=== PATIENT | male | born 2005 | race African-American/Black ===

== ENCOUNTER 2024-08-18 13:29 | Emergency (ER) | payer OTHER ==
[~2024-08-18] VITALS: Ht 180.3 cm; Wt 68.0 kg
[2024-08-18 13:32] VITALS: BP 102/64; PULSE 60; RESP 16; TEMP 37; O2SAT 99
[2024-08-18] MEDS ORDERED: SODIUM CHLORIDE 0.9% 1,000 ML IV ONE (13:45)
== END 2024-08-18 15:30 | disposition left against medical advice (07) ==
LOC: ER 13:29
DX: R53.1 Weakness (principal); G47.00 Insomnia, unspecified
CPT/HCPCS: 99283; J7030